=== PATIENT | female | born 1940 | race Caucasian/White ===

== ENCOUNTER 2025-01-10 16:11 | Inpatient (IN) | payer MEDICARE, OTHER ==
[~2025-01-10] VITALS: Ht 167.6 cm; Wt 68.0 kg
[2025-01-10 16:59] LABS: MEAN PLATELET VOLUME 8.3 FL (7.4-10.4); RED CELL DISTRIBUTION WIDTH 15.6 % (11.5-14.5)
--- NOTE | 2025-01-10 17:02 | RADIOLOGY REPORT ---
EXAM: DI CHEST,SINGLE VIEW HISTORY: CP TECHNIQUE: 1 view of the chest COMPARISON: None FINDINGS/IMPRESSION: LUNGS: Peripheral interstitial edema. MEDIASTINUM: Normal cardiac size BONES: No acute osseous abnormality. thoracolumbar fusion. Right-sided Calcific tendonitis of the shoulder OTHER: None.
[2025-01-10 17:24] LABS: CREATININE 1.02 MG/DL (0.40-0.90); PRO BRAIN NATRIURETIC PEPTIDE 1086 PG/ML (0-450); TOTAL CARBON DIOXIDE 32.0 MMOL/L (24-32); eCRCL 37 ML/MIN; eGFR 51 ML/MIN
--- NOTE | 2025-01-10 18:36 | Physician Documentation ---
History of Present Illness General Chief Complaint: Syncope Stated Complaint: TRANSFER Time Seen by MD: 18:16 Mode of Arrival: EMS History of Present Illness Initial Comments This is an 84-year-old female transferred to us from [facility] [place] for evaluation of elevated troponin. The patient is an exceedingly poor historian. The patient evidently presented to the outside facility for evaluation of chronic posterior headaches, chronic visual disturbances in bilateral feels for which she had already seen her PCP, had seen press tool maker, had an MRI scheduled. Evidently today she had an episode of vertigo while in the kitchen. This prompted her to be evaluated. She reports that she has been experiencing intermittent chest discomfort that he describes like I need to rub it, accompanied by intermittent exertional dyspnea which is new for her for the last several weeks. No palliating or aggravating factors for the chest pain reported by the patient. At the time of my examination she is symptom free. Evidently the patient has a history of TBI several years ago secondary to the fall mi traveling a you are. No concerns for tobacco, alcohol or illicit substances use Medication Reconciliation Allergies: Coded Allergies: Penicillins (Verified Allergy, Unknown, 01/10/25) clarithromycin (Verified Allergy, Unknown, 01/10/25) Review of Systems ROS 10 point review of systems was performed and unless noted above in HPI is negative for acute process/complaint. Physical Exam Physical Exam Vital Signs: Temperature: 98.8, Source: Oral, Heart Rate: 65, Respiratory Rate: 14, BP: 126/57, Pulse Oximetry: 96, Weight: 68.000 Oxygen Flow Rate: 0 Physical Exam GENERAL: Awake, alert, oriented, GCS 15, no apparent distress, non-toxic appearing, answers questions, follows commands appropriately. Examined in bed 8., accompanied by daughter HEENT: Atraumatic, normocephalic, pupils equal, extraocular muscles intact, sclerae anicteric, mucus membranes moist, oropharynx is clear, no stridor. NECK: supple, full active range of motion, trachea midline, no thyromegaly, no lymphadenopathy, no JVD. CARDIOVASCULAR: regular rate/rhythm, no murmurs/gallops/rubs, Pulses are 2+ in all extremities and symmetric. Capillary refill less than 2 seconds. PULMONARY: Nonlabored, good air movement ,no respiratory distress, speaking in full sentences, clear to auscultation bilaterally, no wheezing, no ronchi, no rales, no accessory muscle use. GASTROINTESTINAL: Soft, non-tender, non-distended, normal active bowel sounds, no organomegaly, no pulsatile masses, no CVA tenderness. NEUROLOGIC: Lucid with normal mental status. Normal facial symmetry. Moves all extremities symmetrically and with purpose. No truncal ataxia. Speech is fluid without evidence of dysarthria or aphasia, no focal deficits appreciated. MUSCULOSKELETAL: There is full range of motion of all extremities. There is no joint pain or joint swelling or joint erythema. There is no muscle pain or tenderness or swelling. EXTREMITIES: warm, well-perfused, no cyanosis, no clubbing, no edema, no acute deformities. Skin: warm, dry, no rashes or lesions, no jaundice, no petechiae orpurpura. No ecchymosis. PSYCHIATRIC: Normal affect, normal insight, normal concentration. Focused exam: [] Progress Results/Orders Results/Orders Vital Signs 01/10/25 01/10/25 01/10/25 01/10/25 16:19 17:08 17:10 18:06 Temp 98.8 Pulse 67 67 65 Resp 17 13 16 14 B/P (MAP) 148/76 149/64 (92) 126/57 (80) Pulse Ox 99 100 96 O2 Flow Rate 0 Laboratory Tests Test 01/10/25 16:51 White Blood Count 5.0 Red Blood Count 3.88 L Hemoglobin 12.3 Hematocrit 36.8 Mean Corpuscular Volume 94.7 Mean Corpuscular Hemoglobin 31.6 H Mean Corpuscular Hemoglobin Concent 33.4 Red Cell Distribution Width 15.6 H Platelet Count 209 Mean Platelet Volume 8.3 Neutrophils (%) (Auto) 50.9 Lymphocytes (%) (Auto) 36.9 Monocytes (%) (Auto) 9.4 Eosinophils (%) (Auto) 1.6 Basophils (%) (Auto) 1.2 H Neutrophils # (Auto) 2.5 Lymphocytes # (Auto) 1.8 Monocytes # (Auto) 0.5 Eosinophils # (Auto) 0.1 Basophils # (Auto) 0.1 CBC Comment Sodium Level 143 Potassium Level 4.0 Chloride Level 107 Carbon Dioxide Level 32.0 Anion Gap 4 L Blood Urea Nitrogen 17 Creatinine 1.02 H Estimated GFR/1.73 m2 51 BUN/Creatinine Ratio 16.7 Glucose Level 93 Calcium Level 8.2 L Troponin I High Sensitivity 137 *H Pro-B-Type Natriuretic Peptide 1086 H Albumin 3.3 L Chemistry Comments Medical Decision Making Additional information obtaine: old records, family Findings Facility Status: ED Holds, E process The plan was discussed with the patient, who demonstrates clear understanding of the plan and is in agreement with the plan unless otherwise noted in the chart. All questions have been answered, all concerns were addressed unless otherwise documented. I was available throughout their ED stay for frequent reassessment and questions. Differential Diagnoses (considered and possible or likely): [Differential diagnosis considered includes chest wall pain, pleurisy, pneumonia, pulmonary embolus, GERD, esophagitis, gastritis, anxiety, stress reaction, costochondritis, acute coronary syndrome, aortic dissection, pericarditis, myocarditis, or pneumothorax. Her occipital headache and visual changes appear to be old. She has a negative CT of the outside facility and does not require any further evaluation at this time.] ??Differential Diagnoses (considered and unlikely, not requiring evaluation currently): [Aortic/great vessels dissection was considered but it is unlikely based on absence of ripping, tearing, migratory chest pain, absence of syncope or focal neurologic deficits, physical examination indicating equal and symme tric pulses.] MDM Data Please see [facility] for the following: Independent Historians and external Records Review. Historian: [Patient] Independent Historians: ?[Daughter, record review. According to records, she had unremarkable EKG, unremarkable CT, elevated troponin.] Medication Management: [Reviewed medication list] Social History and determinants: [Reviewed] Please see the body of the note for the following: Any independent interpretations of ECG, imaging studies. All vitals signs/haemodynamics, ordered tests were independently reviewed and interpreted by myself. Nursing triage complaint and vitals reviewed, additional nursing notes were reviewed as available and I agree unless otherwise noted or documented in contradiction in the chart Vital Signs: Independently reviewed Labs: Independently interpreted Imaging: Independently interpreted Old Medical Records: Independently reviewed, see [facility] for relevant summary and information Pulse Oximetry: [96%] interpreted as [normal on room air] by me [Terrazzo Helper: [Regular Rate, Regular rhythm, no ectopy, NSR] reviewed and interpreted by me] Additionally notably showing: [Hemodynamics reviewed. The patient isn't febrile, not tachycardic, no evidence of hypotension respiratory distress. CBC normal chemistry is unremarkable. Normal renal function. BNP is elevated concerning for new onset CHF. Troponin is also elevated. No significant change from prior. Chest x-ray was repeated and it shows no acute cardiopulmonary disease.] Tests considered but not ordered include: [Stress test and echo can be done on an inpatient basis] Social Determinants of Health Impact: Patient was evaluated in [facility] [place] healthcare due to below par ratio of patient to medical providers. [] Comorbid Conditions Impacting Present Evaluation and Care/Treatment: [Multiple, see list] Management Discussions with other Healthcare Providers: [Hospitalist regarding admission] Treatment and Disposition Medication Management (Given or considered): []. See EMR for details Consideration for Hospitalization/Escalation/Deescalation of Care: Admission for observation has been considered, it appears to be necessary for further evaluation of her NSTEMI. ?ED Course:?[No clinical deterioration] ?Shared decision making:?[] Code status:?FULL Please see the full Electronic Medical Record for full details of nursing documentation, medications list, other records of complete past medical history and conditions, vital signs, laboratory studies, and any radiologic study interpretations by radiologists. Portions of this note were completed using [employer] dictation software and as a result there may exist minor errors in spelling. I have reviewed elements of past family and social history and agree as included in note. Differential Diagnosis See body of main note for differential diagnosis Departure Disposition: ADMITTED INPATIENT Admitted to Inpatient Unit: to hospitalist Impression: Primary Impression: NSTEMI (non-ST elevated myocardial infarction) Additional Impressions: Near syncope Chronic headache Visual disturbances Referrals: NO PRIMARY CARE PROVIDER (PCP) Signature Scribe Signature: No scribe Attestation: The note accurately reflects work and decisions made by me.Ramez Townsend, 01/10/25 18:36 RAMEZ TOWNSEND DO Jan 10, 2025 18:36
[2025-01-10] MEDS ORDERED: morphine 4 MG/ML inj SYRINge IV PRN ×2 (20:30)
[2025-01-10] MEDS ORDERED: potassium Cl 40MEQ/1/2NS 520ml 520 ML IV PRN (20:30)
[2025-01-10] MEDS ORDERED: docusate sod 100mg capsule PO PRN (20:30)
[2025-01-10] MEDS ORDERED: ondansetron/PF 4mg/2ml inj IV PRN (20:30)
[2025-01-10] MEDS ORDERED: magnesium Cl slow-release 64mg tablet PO PRN (20:30)
[2025-01-10] MEDS ORDERED: mag hydrox/Alum hydrox/simeth 30ml oral suspension PO PRN (20:30)
[2025-01-10] MEDS ORDERED: magnesium hydroxide 30ml (MOM) UD suspension PO PRN (20:30)
[2025-01-10] MEDS ORDERED: potassium Cl 20 mEq SR tablet PO PRN ×2 (20:30)
[2025-01-10] MEDS ORDERED: magnesium sulf-water 2g/50mL 50 ML IV PRN (20:30)
[2025-01-10] MEDS ORDERED: magnesium sulf-water 4G/100mL 100 ML IV PRN (20:30)
[2025-01-10] MEDS ORDERED: aminophylline 250mg/10ml inj. IV PRN (20:40)
[2025-01-10] MEDS ORDERED: metoprolol tartrate 1mg/ml inj IV PRN (20:40)
[2025-01-10] MEDS: PERFLUTREN PROTEIN-A MICROSPHR (Optison) 0.22 MG/ML 3ML VIAL IV ONE (20:52)
--- NOTE | 2025-01-10 20:52 | HISTORY AND PHYSICAL-Residence ---
History & Physical Providers to CC Resident Creating Document: JOSE LUIS STEINBERG, KRISHAN ~ History of Present Illness Reason for Admit\Complaint: Atypical Angina w/ near syncope History of Present Illness An 84 years old lady with a past medical history of vertigo, bradycardia, peripheral neuropathy, Raynaud's syndrome, s/p hemorrhoidectomy, s/p titanium for lumbar vertebral fracture from [facility], nonspecific cardiac arrhythmia on metoprolol, who was transferred from [facility] for concerns of non-STEMI. Patient was seen in ER in the presence of her and daughter who is RN. Most of the information were obtained from patient and her daughter. Patient stated that she had near syncopal episode this morning while she was doing dishes in the sink. She noticed she was about to pass out with the prodromal feelings of the whole-body flushing, hotness, palpitations, dizziness, lightheadedness, tingling all over her body, and nausea feeling although she did not pass out. She found that her saturation got better once she sat down at the moment. She denied having fever with chills and rigors, chest pain/pressure, radiating chest pain, lower urinary tract symptoms and abnormal bowel movement including diarrhea, hemoptysis, orthopnea PND and bilateral ankle swelling before she had symptoms today. Over a couple of 2 months ago, patient started noticing dizziness lightheadedness, with new visual changes like wavy, foggy vision which she attributed to her usual vertigo along with bilateral occipital headaches without having any FND for which she was prescribed MRI head and neck scan by her PCP, however, she did not happen to have one yet. She had fallen down to ground six years ago because of loss of balance and got lower lumbar vertebral fracture which was replaced with titanium. Her box worker is Dr. Cortez and she is seeing box worker for nonspecific arrhythmia for which she was put on metoprolol. Upon her recent visual changes, bilateral occipital headaches, bradycardia, and dizziness, Dr. Cortez recommended her to stop taking metoprolol since last two weeks ago. She was not noticing any chest pain today but she has been having off and on chest discomfort/heaviness over months, for which she had normal stress test at Dr. Cortez office a year ago and Dr. Cortez is planning to stress her again on coming January 22. She denied any recent malignancy history and treatment, long travel distance history, history of DVT and pulmonary embolism, recent viral illness, and any sick contact. In [facility], patient found to have mildly elevated troponin 0.19, clear urine analysis, CT head scan without IV contrast showing no acute intracranial abnormality were done. Patient was given p.o. aspirin 324 mg and subcutaneous Lovenox 7 mg with the concerns of non-STEMI. Allergies: Coded Allergies: Penicillins (Verified Allergy, Unknown, 01/10/25) clarithromycin (Verified Allergy, Unknown, 01/10/25) Past Medical History Past Medical History vertigo, bradycardia, peripheral neuropathy, Raynaud's syndrome, nonspecific cardiac arrhythmia on metoprolol Past Surgical History Surgical History Comment s/p hemorrhoidectomy, s/p titanium for lumbar vertebral fracture from [facility] Past Social History Social History Comment She is currently living with her in the same house. Her RN daughter is also POA after her . Patient quit smoking 25 years ago, denies using illicit drugs. She is still drinking small amount of wine almost every night. She is fully ambulatory. ROS All Other Systems: Reviewed and Negative ROS Constitutional: No fever, chills, weakness, weight gain or loss Eyes: No pain, erythema, discharge, blurring of vision ENT: No sore throat, epistaxis, tinnitus Cardiovascular: No chest pain, chest pressure, syncope, lower extremity edema, paroxysmal nocturnal dyspnea Respiratory: No shortness of breath, cough, hemoptysis Gastrointestinal: Normal appetite. No nausea, vomiting, diarrhea, constipation, hematemesis, abdominal pain, bloating, melena or fresh blood Genitourinary: No frequency, urgency, nocturia, hematuria or dysuria Musculoskeletal: No arthralgias or myalgias Integumentary: No change in skin, hair, nails. No swelling, bruising, abrasions Neurologic: No headache, neck pain, numbness or tingling of the extremities, weakness Psychiatric: No delusions, depression, loss of interest in normal activity or change in sleep pattern, hallucinations, suicidal ideations Endocrine: No fatigue, weakness, polydipsia, polyuria, change in appetite, heat or cold intolerance, sweating, dry skin Hematological: No bleeding, petechiae, bruising Allergies: No asthma or urticaria Exam Vitals: Vital Signs Date Time Temp Pulse Resp B/P (MAP) Pulse Ox O2 Delivery O2 Flow Rate FiO2 01/10/25 20:16 01/10/25 20:15 98.8 67 16 98 0 General: General: Bilateral possible sensory deafness, Well alert, well oriented, not confused, not agitated, not in acute distress, well cooperated during the physical. HEENT: HEENT: Conjunctive are pink, sclerae clear, no icterus, pupil is equal in both sides, reactive to light, no ear discharge, no pharyngeal erythema or an edema, mouth and lips are slightly dry. Neck: Neck: Supple, no JVD, no lymphadenopathy and thyromegaly. Chest: Lungs:Equal air entry on both lungs, no additional sounds Cardiovascular: Heart: S1-S2 regular sinus rhythm and, regular rate, no gallops, no rubs, no murmurs Abdomen: Abdomen: No visible peristalsis, Bowel sounds present on auscultation, soft, nontender, no guarding, no rigidity Extremities: Extremities: No obvious deformities, no pitting edema bilaterally, capillary refill intact, able to wiggle toes both sides, peripheral pulsations are intact on both sides Central Nervous System: RN MEDICATION: No focal neurological deficits, no motor and sensory weakness in all 4 extremities, could move all 4 extremities Musculoskeletal: Musculoskeletal: No joint swelling, deformities, inflammations, and no scoliosis and back tenderness Skin: Skin: No active skin lesions and rashes Diagnostic Data Last Recorded Lab Results: 01/10/25 1651 01/10/25 1651 Advance Care Planning Advanced Care plannin - 30 Minutes Additional Plan An 84 years old lady with a past medical history of vertigo, bradycardia, peripheral neuropathy, Raynaud's syndrome, s/p hemorrhoidectomy, s/p titanium for lumbar vertebral fracture from [facility], nonspecific cardiac arrhythmia on metoprolol, who was transferred from [facility] for concerns of non-STEMI. # Near Syncope episode # Atypical Angina # possible type 2 TX -Given Hx of transferred from [facility] found to have mildly elevated troponin for which she was given p.o. aspirin loading dose and SQ Lovenox 70 mg, patient was decided to be admitted to PCU for further investigation including ruling out ACS and possible syncope workup, in the presence of underlying cardiology issue. -Pt had near syncope episode, which she will be ruled out for autonomic dysfunction/orthostatic hypotension vs CVA in the presence of recent visual changes with bilateral occipital headaches vs underlying bradyarrhythmia. -In ER, EKG showed sinus rhythm and vitals were stable with slightly elevated BP 150/80 mm Hg. -upon slightly elevated initial troponin at [facility] followed by slightly elevated serial troponin here showing 137-125 which could be type 2 TX possibly from her possible orthostatic hypotension. Plan: -NPO after midnight, stress test in the morning -possible Cardiology/Dr. Cortez consultation/inform -orthostatic hypotension tests q.12h, treat accordingly -pending carotid bilateral ultrasound, to investigate if [place] titanium placement is compatible to MRI scan in the morning time, to consider MRI head and neck inpatient. -pending 2D echocardiogram with a bubble study -continuous telemetry monitoring -hold metoprolol tartrate unless Dr. Cortez recommended to resume it -pending medical reconciliation -to assess vertigo which could be central/peripheral and should be ruled out -to use sublingual nitroglycerin as needed for chest pain # slightly elevated creatinine level # apparent hypocalcemia with selective serum hypoalbuminemia -no baseline to compare with EGFR 51 -monitor rate of EGFR declining -calculated calcium show 8.8 which is within normal -pending urine lytes CODE STATUS: Full code, spent 5-10 minutes in the presence of family members/POA by explained in details about CPR for full code. DVT prophylaxis: SQ heparin 5000 units b.i.d. Analgesia/sedation: IV morphine as needed Lines/tubes: PIV GI prophylaxis: Protonix Nutrition: NPO after midnight for stress test tomorrow, followed by Heart healthy Prognosis: Guarded Disposition: Continue medical management including continuous telemetry monitoring, pending labs and imaging, orthostatic hypotension, inform Cardiology Dr. Cortez, PT eval and DC plan. Resident attestation: Patient was seen, examined and discussed with attending MD, Dr. Pj STEINBERG MD Internal Medicine Resident, PGY3 [facility] Patient was evaluated using HIPPA complaint AV device Agree with plan as discussed with the resident Follow repeat EKG Froilan Oliva MD Date of Service: Jan 10, 2025 Billing Provider: FROILAN OLIVA MD, TIN, KRISHAN Jan 10, 2025 20:52 FROILAN OLIVA MD Jan 10, 2025 21:53
[2025-01-10 21:00] LABS: APTT 36 SECONDS (22-32); INR 1.1 INR
[2025-01-10] MEDS ORDERED: ESCI5TAB PO (21:55)
[2025-01-10 22:03] LABS: LEUKOCYTE ESTERASE ,URINE NEGATIVE (Neg); NITRITES, URINE NEGATIVE (Neg); OCCULT BLOOD,URINE NEGATIVE (Neg)
[2025-01-10 22:05] LABS: UA COLLECTION TYPE NON-SPECIFIED
[2025-01-10 22:30] VITALS: O2SAT 98
[2025-01-11] VITALS (15 sets, daily range): BP systolic 95–173; BP diastolic 45–78; PULSE 54–85; RESP 10–22; TEMP 97–98.5; O2SAT 93–100
[2025-01-11 04:14] LABS: CREATININE,URINE RANDOM 50.0 MG/DL; OSMOLALITY UA 533.0 MOSM/K (50-1400)
[2025-01-11 06:22] LABS: MEAN PLATELET VOLUME 9.2 FL (7.4-10.4); RED CELL DISTRIBUTION WIDTH 15.3 % (11.5-14.5)
[2025-01-11 07:01] LABS: OSMOLALITY 292 MOSM/K (280-300)
[2025-01-11 07:02] LABS: CHOL/HDL RATIO 1.7 (0.00-4.99); CREATININE 1.08 MG/DL (0.40-0.90); LDL CHOLESTEROL 34 MG/DL (50-100); TOTAL CARBON DIOXIDE 30.7 MMOL/L (24-32); eCRCL 35 ML/MIN; eGFR 48 ML/MIN
[2025-01-11] MEDS: pantoprazole 40mg Tablet.DR PO SCH (07:16)
[2025-01-11] MEDS: K and/or MAG REPLACEMENT MC SCH (07:17)
[2025-01-11] MEDS: heparin, porcine 5000 units/ml vial SQ SCH (07:17)
--- NOTE | 2025-01-11 09:30 | ELECTROCARDIOGRAPH REPORT ---
[facility] Test Date: 2025-01-10 Test Time: 16:22:41 Pat Name: MCKENNA TOLENTINO Department: EMERGENCY ROOM Room: [place] [address] A Gender: F [place]: [place] : 1940 Requested By: RAFFI RENDON Order Number: [id number] Reading MD: Dr. HEMANT Cortez Measurements Intervals [place] Rate: 72 P: 52 WV: 171 QRS: -26 QRSD: 102 T: 80 QT: 403 QTc: 442 Interpretive Statements Sinus rhythm Borderline left axis deviation Probable anteroseptal infarct, old Baseline wander in lead(s) V6 Electronically Signed On 01-12-2025 9:36:[address] HEMANT Cortez Please click the below link to view image of tracing.
[2025-01-11] MEDS: regadenoson 0.4mg/5ml syringe IV PRN (10:03)
--- NOTE | 2025-01-11 11:57 | RADIOLOGY REPORT ---
CLINICAL INFORMATION: Unstable angina. Near syncope. TECHNIQUE: 8.4 mCi of technetium 99m sestamibi was infused at rest. Rest SPECT imaging was obtained. Routine protocol for Lexiscan stress study was performed with 0.4 mg of Lexiscan. 34 mCi of technetium 99m sestamibi was infused. Stress SPECT imaging was obtained. COMPARISON: None FINDINGS: Resting heart rate of 55 BPM increased to maximum rate of 83 BPM. Resting blood pressure of 147/55 increased to 173/78. The patient experienced chest discomfort during the stress portion of the exam. Nonspecific ST-T wave changes. There is no evidence of stress induced ischemia or stress dilatation of the left ventricle. TID ratio is 1.17. Wall motion imaging appears normal. Calculated left ventricular ejection fraction is 78%. IMPRESSION: 1. No evidence of stress-induced ischemia. 2. Left ventricular ejection fraction is 78%.
--- NOTE | 2025-01-11 14:03 | CARDIOLOGY REPORT ---
APPROVED REPORT EXAM: Comprehensive 2D, Doppler, and color-flow Echocardiogram. Patient Location: 3017 A Heart Rate: 60's bpm Rhythm: SINUS Indications ANGINA Shoe Fitter: MD Ruben Previous echo: NONE AVAILABLE (AFTER HOURS) 2D Dimensions RVDd 3.2 cm IVSd 0.9 (0.7-1.1cm) LVDd 4.3 cm PWd 0.9 (0.7-1.1cm) IVSs 1.1 (0.8-1.2cm) LVDs 3.1 (2.5-4.0cm) PWs 1.0 (0.8-1.2cm) LVOT Diameter 2.01 (1.8-2.4cm) LVEF(%) 56.5 (>50%) FS (%) 29.3 % SV 47.7 ml CO 5.4 L/min M-Mode Dimensions Left Atrium(MM) 4.36 (2.5-4.0cm) Aortic Root 3.02 (2.2-3.7cm) Aortic Valve AoV Peak Azael. 176.2 cm/s AoV VTI 40.2 cm AO Peak GR. 12.4 mmHg AO Mean GR. 6 mmHg LVOT VTI 31.08 cm LVOT Peak Azael. 143.8 cm/s RUPINDER(VTI)/BSA 2.45 cm2/m2 RUPINDER (VTI) 2.45 cm2 AV DI 0.77 % Mitral Valve MV Peak Gr. 7 mmHg MV PHT 64 ms MVA (PHT) 3.44 cm2 MV VMax 131.6 cm/s Tricuspid Valve TR P. Velocity 287 cm/s RAP ESTIMATE 10 mmHg TR Peak Gr. 33 mmHg RVSP 43 mmHg LEFT VENTRICLE Normal LV size and wall thickness. Overall systolic function is normal. Overall LVEF is 60-65%. RIGHT VENTRICLE RV is normal size and function. Estimated PA systolic pressure of 43 mm of mercury ATRIA Left atrium is mildly dilated. AORTIC VALVE Trileaflet AV appears mildly sclerotic without stenosis. No insufficiency by color and spectral flow Doppler. MITRAL VALVE Mild MV annular calcification without stenosis. Mild regurgitation by color and spectral flow Doppler. TRICUSPID VALVE TV appears structurally normal with moderate regurgitation by color and spectral flow Doppler. PULMONIC VALVE Pulmonic valve is grossly normal in structure. GREAT VESSELS The aortic root is normal in size. PERICARDIUM Normal pericardium. No effusion. Other Information Study Quality: Adequate Conclusion Overall LVEF is 60-65%. Normal LV size and wall thickness. Overall systolic function is normal. RV is normal size and function. Estimated PA systolic pressure of 43 mm of mercury Trileaflet AV appears mildly sclerotic without stenosis. No insufficiency by color and spectral flow Doppler. Mild MV annular calcification without stenosis. Mild regurgitation by color and spectral flow Doppler. TV appears structurally normal with moderate regurgitation by color and spectral flow Doppler. Normal pericardium. No effusion.
--- NOTE | 2025-01-11 18:39 | VASCULAR REPORT ---
CLINICAL HISTORY: Dizziness, vertigo. TECHNIQUE: Duplex carotid Doppler ultrasound was performed. Grayscale, color- flow, and spectral waveform analysis was performed. COMPARISON: None FINDINGS: There is mild calcified plaque seen on aguila scale imaging in the carotid bifurcations and proximal ICAs bilaterally. There is no significant elevation of the peak systolic velocity. There is no significant spectral broadening. Color doppler examination demonstrates no evidence for significant turbulent flow. Findings correspond to the less than 50% stenosis category. Antegrade flow is noted in both vertebral arteries. Subclavian arteries demonstrate normal multiphasic flow bilaterally. EXAMINATION DATA: RIGHT PSV (cm/s) EDV (cm/s) ICA 64 16 CCA 65 ECA 83 ICA/CCA Ratio: 0.98 Vertebral Flow: antegrade LEFT PSV (cm/s) EDV (cm/s) ICA 80 22 CCA 61 ECA 61 ICA/CCA Ratio: 1.31 Vertebral Flow: antegrade IMPRESSION: 1. Findings are consistent with the less than 50% carotid stenosis category bilaterally. 2. Antegrade flow in the vertebral arteries.
--- NOTE | 2025-01-11 19:19 | PROGRESS NOTE ---
Daily Progress Note Providers to CC ~ Antibiotic Timeout Antibiotic Ordered?: No Subjective Patient was seen in presence of her and 2 grandkids today . All labs, diagnostic workup discussed with patient and family members in detail in visit All questions and queries answered to the best of my professional medical knowledge. Patient wants to get MRI of her head because off and on she feels that her head hurts and it is not getting better., per ER record" she was recommended MRI head and neck scan by her PCP, however, she did not happen to have one yet. She had fallen down to ground six years ago because of loss of balance and got lower lumbar vertebral fracture which was replaced with titanium. patient follows with community outreach specialist Dr. Cortez in outpatient setting" Objective Vital Signs Date Time Temp Pulse Resp B/P (MAP) Pulse Ox O2 Delivery O2 Flow Rate FiO2 01/11/25 15:00 97.6 67 10 118/52 (74) 99 Room Air 01/11/25 08:00 0.0 01/10/25 22:30 21 Result Diagram: 01/11/25 0546 01/11/25 0546 General-patient not in any acute distress, alert awake oriented, chronically ill-appearing, age-appropriate, looks comfortable HEENT-atraumatic normocephalic, neck supple without elevated JVD, no thyromegaly or carotid bruit. No lymphadenopathy bilaterally. Eyes-no icterus or pallor seen in eyes Chest-clear to auscultation bilaterally, breathing nonlabored no tachypnea, no wheezing, no crepitation, no crackles. Heart-S1-S2 normal, regular heart rate no murmur Abdomen bowel sounds positive on auscultation, soft nondistended nontender no guarding, no rigidity Skin no active skin rash Neurology-grossly intact, nonfocal alert awake oriented Extremity- no pedal edema able to move all 4 extremities Psychiatry - patient is not confused or agitated cooperated during physical examination Coagulation Studies Laboratory Tests Test 01/10/25 16:52 Prothrombin Time 10.9 SECONDS (9.0-12.0) INR International Normalized Ratio 1.1 INR Activated Partial Thromboplast Time 36 SECONDS (22-32) H Coagulation Comments Problem\\Assessment\\Plan An 84 years old lady with a past medical history of vertigo, bradycardia, peripheral neuropathy, Raynaud's syndrome, s/p hemorrhoidectomy, s/p titanium for lumbar vertebral fracture from [facility], nonspecific cardiac arrhythmia on metoprolol, who was transferred from [facility] for concerns of non-STEMI. # Near Syncope episode # Atypical Angina # possible type 2 NC -Pt had near syncope episode -In ER, EKG showed sinus rhythm and vitals were stable -upon slightly elevated initial troponin at [facility] followed by slightly elevated serial troponin here showing 118-137-125 Plan: - stress test done today which was unremarkable for any acute cadriac ischemia -we will inform community outreach specialist Dr. Cortez in AM -orthostatic hypotension tests q.12h, treat accordingly -carotid bilateral ultrasound showed less than 50% carotid stenosis category bilaterally.Antegrade flow in the vertebral arteries. -MRI head ordered but not sure that it is compatible with Lumber titanium material -echocardiogram done, ejection fraction 60-65% overall systolic function is normal normal left ventricular size and wall thickness. PA pressure 43. Right ventricle is normal size and function, rest of the echocardiogram findings unremarkable -will continue telemetry monitoring -hold metoprolol tartrate unless Dr. Cortez recommended to resume it # slightly elevated creatinine level- improved # apparent hypocalcemia with selective serum hypoalbuminemia Patient of the monitor renal function CODE STATUS: Full code, DVT prophylaxis: SQ heparin 5000 units b.i.d. Analgesia/sedation: IV morphine as needed Lines/tubes: PIV GI prophylaxis: Protonix Nutrition: Heart healthy diet Patient's current condition is guarded we will continue to follow patient in AM Date of Service: Jan 11, 2025 Billing Provider: MONIQUE MONROY MD Common Visit Codes: [id number] INP/OBS CARE(HIGH) MONIQUE MONROY MD Jan 11, 2025 19:19
[2025-01-12 02:00] VITALS: BP 132/57; PULSE 72; RESP 16; TEMP 97.4; O2SAT 98
[2025-01-12 07:00] VITALS: BP 114/58; PULSE 52; RESP 16; TEMP 98.1; O2SAT 99
[2025-01-12 07:08] LABS: MEAN PLATELET VOLUME 9.4 FL (7.4-10.4); RED CELL DISTRIBUTION WIDTH 15.3 % (11.5-14.5)
[2025-01-12 07:43] LABS: CREATININE 0.99 MG/DL (0.40-0.90); TOTAL CARBON DIOXIDE 30.0 MMOL/L (24-32); eCRCL 38 ML/MIN; eGFR 53 ML/MIN
[2025-01-12] MEDS: sotalol HCl 40mg (1/2 tablet) PO SCH (09:15)
[2025-01-12 09:33] LABS: MEAN PLATELET VOLUME 9.1 FL (7.4-10.4); RED CELL DISTRIBUTION WIDTH 15.5 % (11.5-14.5)
--- NOTE | 2025-01-12 09:47 | CONSULTATION REPORT - RESIDENT ---
Consult Providers to CC Resident Creating Document: CRYSTAL PEREZ RES History of Present Illness Reason for Admit\Complaint: Dizziness, posterior headache, palpitations History of Present Illness An 84 years old lady with a past medical history of vertigo, bradycardia, peripheral neuropathy, Raynaud's syndrome, s/p hemorrhoidectomy, s/p titanium for lumbar vertebral fracture from [facility], nonspecific cardiac arrhythmia on metoprolol, who was transferred from [facility] for concerns of non-STEMI. She reported that she had near syncopal episode on January 10 while she was doing dishes in the sink. She noticed she was about to pass out with the prodromal symptoms of flushing, hotness, palpitations, dizziness, lightheadedness, tingling all over her body, and nausea feeling although she did not pass out. She reported dizziness, posterior headache, palpitations during the time of admission and it seems to be the 1st episode and she had enormous dizziness while she came to ER from [place]. Troponins were mildly elevated at [facility] and then referred here for further evaluation after giving aspirin 325, subcu Lovenox Allergies: Coded Allergies: Penicillins (Verified Allergy, Unknown, 01/10/25) clarithromycin (Verified Allergy, Unknown, 01/10/25) Home Medications Home Medications Active Reported Lexapro* (Escitalopram Oxalate) 5 Mg Tablet 1 Tab PO DAILY 30 Days Past Medical History Past Medical History vertigo, bradycardia, peripheral neuropathy, Raynaud's syndrome, nonspecific cardiac arrhythmia on metoprolol Past Surgical History Surgical History Comment s/p hemorrhoidectomy, s/p titanium for lumbar vertebral fracture from [facility] Past Social History Social History Comment She is currently living with her in the same house. Her RN daughter is also POA after her . Patient quit smoking 25 years ago, denies using illicit drugs. She is still drinking small amount of wine almost every night. She is fully ambulatory. ROS ROS All are negative except positive pertinent as in HPI Exam Vitals: Vital Signs Date Time Temp Pulse Resp B/P (MAP) Pulse Ox O2 Delivery O2 Flow Rate FiO2 01/12/25 07:00 98.1 52 16 114/58 (76) 99 Room Air 01/11/25 08:00 0.0 01/10/25 22:30 21 General: General: Bilateral possible sensory deafness, Well alert, well oriented, not confused, not agitated, not in acute distress, well cooperated during the physical. HEENT: HEENT: Conjunctive are pink, sclerae clear, no icterus, pupil is equal in both sides, reactive to light, no ear discharge, no pharyngeal erythema or an edema, mouth and lips are slightly dry. Neck: Neck: Supple, no JVD, no lymphadenopathy and thyromegaly. Chest: Lungs:Equal air entry on both lungs, no additional sounds Cardiovascular: Heart: S1-S2 regular sinus rhythm and, regular rate, no gallops, no rubs, no murmurs Abdomen: Abdomen: No visible peristalsis, Bowel sounds present on auscultation, soft, nontender, no guarding, no rigidity Extremities: Extremities: No obvious deformities, no pitting edema bilaterally, capillary refill intact, able to wiggle toes both sides, peripheral pulsations are intact on both sides Central Nervous System: CHEMICAL PATHOLOGIST: No focal neurological deficits, no motor and sensory weakness in all 4 extremities, could move all 4 extremities Musculoskeletal: Musculoskeletal: No joint swelling, deformities, inflammations, and no scoliosis and back tenderness Skin: Skin: No active skin lesions and rashes Diagnostic Data Last Recorded Lab Results: 01/12/25 0904 01/12/25 0625 Diagnostic Data: Laboratory Tests Test 01/10/25 16:52 Prothrombin Time 10.9 SECONDS (9.0-12.0) INR International Normalized Ratio 1.1 INR Activated Partial Thromboplast Time 36 SECONDS (22-32) H Coagulation Comments Additional Plan 84-year-old female with Supraventricular tachycardia Telemetry showed supraventricular tachycardia of 140s Recommended to start sotalol 40 mg p.o. b.i.d. Troponinemia Elevated troponin levels could be secondary to stress-induced Mild elevation of troponins with negative L[place] stress test and the stress test was negative even in her previous office visit Follow up in outpatient Neurology consultation Follow up with PCP at [place] Elevated creatinine Pseudo hypocalcemia Hypoalbuminemia Management per hospitalist team Date of Service: Jan 12, 2025 Billing Provider: ULYSSES WATTS MD, VENKATESH, RES Jan 12, 2025 09:47
[2025-01-12 10:00] VITALS: BP 100/43; PULSE 68; RESP 21; TEMP 98.5; O2SAT 99
[2025-01-12 11:00] VITALS: BP_SYST 111; BP_SYST 112; BP_DIAS 44; BP_DIAS 52; BP_DIAS 55; PULSE 67; PULSE 68; PULSE 70
[2025-01-12] MEDS: sotalol HCl 40mg (1/2 tablet) PO ONE (12:41)
[2025-01-12 13:00] VITALS: O2SAT 99
[2025-01-12 15:00] VITALS: BP 119/48; PULSE 55; RESP 15; TEMP 97.6; O2SAT 99
--- NOTE | 2025-01-12 15:15 | RADIOLOGY REPORT ---
PROCEDURE: MR MRI HEAD INDICATION: dizziness/ near syncope EXAM DATE: 01/12/2025 02:03 PM COMPARISON: None TECHNIQUE: MRI of the brain without intravenous contrast. FINDINGS: At least 4 tiny foci of diffusion restriction within the right lentiform nucleus, external capsule, and caudate mild. More equivocal tiny focus of diffusion restriction within the left cancino radiata. There is no evidence of acute intracranial hemorrhage, extra-axial collection, mass effect, midline shift, herniation or hydrocephalus. The ventricles, sulci and cisterns appear age appropriate. Moderate generalized cerebral volume loss with confluence areas of increased T2/FLAIR signal in the subcortical, deep, and periventricular white matter of both cerebral hemispheres compatible with severe chronic small vessel ischemia. There are no signal abnormalities on the susceptibility weighted sequences. The major vascular flow voids are present. The visualized paranasal sinuses and mastoid air cells are clear. The surrounding soft tissues and osseous structures are unremarkable. IMPRESSION: Few tiny lacunar infarcts within the right basal ganglia. More equivocal tiny lacunar infarct within the left cancino radiata, possibly artifact.
[2025-01-12] MEDS ORDERED: SOTA80TA73 PO (16:08)
[2025-01-12] MEDS ORDERED: ASPI-1265 PO (16:12)
[2025-01-12] MEDS ORDERED: LOVA40TA2 PO (16:12)
[2025-01-12] MEDS ORDERED: CLOP-32 PO (16:12)
--- NOTE | 2025-01-12 19:19 | DISCHARGE SUMMARY ---
Discharge Summary Providers to ~ Discharge Summary Admission Diagnosis: Atypical Angina Hospital Course DATE OF ADMISSION: 01/10/25 DATE OF DISCHARGE:01/12/25 CBC testing done on January 12, 2025 WBC 3.9 hemoglobin 12.9 hematocrit 39.2 platelet count 233. Serum chemistry done on January 12, 2025 sodium 145 potassium 3.6 creatinine 0.99 GFR 53 normal liver enzymes except mildly elevated AST 38. Hemoglobin A1c 5.0, lipid panel showing triglyceride 61 total cholesterol 137 LDL 34 HDL 81. TSH 1.56 MRI HEADIMPRESSION: Few tiny lacunar infarcts within the right basal ganglia. More equivocal tiny lacunar infarct within the left cancino radiata, possibly artifact. ECHOCARDIOGRAMConclusion Overall LVEF is 60-65%. Normal LV size and wall thickness. Overall systolic function is normal. RV is normal size and function. Estimated PA systolic pressure of 43 mm of mercury Trileaflet AV appears mildly sclerotic without stenosis. No insufficiency by color and spectral flow Doppler. Mild MV annular calcification without stenosis. Mild regurgitation by color and spectral flow Doppler. TV appears structurally normal with moderate regurgitation by color and spectral flow Doppler. Normal pericardium. No effusion. NM ANTONETTE SCANIMPRESSION: 1. No evidence of stress-induced ischemia. 2. Left ventricular ejection fraction is 78%. : VL CAROTIDIMPRESSION: 1. Findings are consistent with the less than 50% carotid stenosis category bilaterally. 2. Antegrade flow in the vertebral arteries. CHEST,SINGLE VIEWFINDINGS/IMPRESSION: LUNGS: Peripheral interstitial edema. MEDIASTINUM: Normal cardiac size BONES: No acute osseous abnormality. thoracolumbar fusion. Right-sided Calcific tendonitis of the shoulder OTHER: None. Discharge Diagnosis\Comment: Few tiny lacunar infarcts within the right basal ganglia, Troponinemia, Supraventricular tachycardia Operations\Procedures: None Consultants: None Complications: None Condition on DC: Stable New Medications: Aspirin (Aspirin) 81 Mg Tab.chew 1 TAB PO DAILY for 30 Days, #30 TAB.CHEW Clopidogrel Bisulfate (Plavix) 75 Mg Tablet 1 TAB PO DAILY for 30 Days, #30 TAB 0 Refills Lovastatin (Lovastatin) 40 Mg Tablet 1 TAB PO DAILY for 30 Days, #30 TAB 0 Refills with food Sotalol Hcl* (Betapace*) 80 Mg Tablet 40 MG PO BID for 30 Days, #60 TAB Continued Medications: Escitalopram Oxalate* (Lexapro*) 5 Mg Tablet 1 TAB PO DAILY for 30 Days, #30 TAB Discharge Summary: An 84 years old lady with a past medical history of vertigo, bradycardia, peripheral neuropathy, Raynaud's syndrome, s/p hemorrhoidectomy, s/p titanium for lumbar vertebral fracture from [facility], nonspecific cardiac arrhythmia on metoprolol, who was transferred from [facility] for concerns of non-STEMI. # Near Syncope episode, likely benign positional vertigo/supraventricular tachycardia # Atypical Angina # possible type 2 OR -Pt had near syncope episode -In ER, EKG showed sinus rhythm and vitals were stable -upon slightly elevated initial troponin at [facility] followed by slightly elevated serial troponin here showing 118-137-125 Plan: - stress test done today which was unremarkable for any acute cadriac ischemia -orthostatic hypotension tests q.12h, treat accordingly -carotid bilateral ultrasound showed less than 50% carotid stenosis category bilaterally.Antegrade flow in the vertebral arteries. -MRI head done today and results mentioned above -echocardiogram done, ejection fraction 60-65% overall systolic function is normal normal left ventricular size and wall thickness. PA pressure 43. Right ventricle is normal size and function, rest of the echocardiogram findings unremarkable -will continue telemetry monitoring -held metoprolol tartrate Dr. Cortez evaluated the patient today and recommended sotalol which is ordered in discharge meds. # slightly elevated creatinine level- improved # apparent hypocalcemia with selective serum hypoalbuminemia Patient of the monitor renal function CODE STATUS: Full code, DVT prophylaxis: SQ heparin 5000 units b.i.d. Analgesia/sedation: IV morphine as needed Lines/tubes: PIV GI prophylaxis: Protonix Nutrition: Heart healthy diet Patient is feeling better she has been afebrile and getting discharged home in stable condition. Patient is seen and examined on the day of discharge. All labs, diagnostic workup and discharge plan discussed with patient and in detail before her discharge. All questions and queries answered to the best of my professional medical knowledge. I heard patient's concerns and address appropriately. Patient was cleared by Physical therapy team for home discharge. manager of project management involved in patient's discharge plan. Discharge instructions provided to the patientPLEASE FOLLOW UP PCP , ENAMELER IN 1 WEEK . She needs referral to Neurology specialist in outpatient setting after hospital discharge. Activity as tolerated. Please provide fall precautions document. Please read the side effects of all your medication and discussed with PCP and quality control specialist after hospital discharge. Likely will need Holter monitoring with rac specialist in outpatient setting. Detailed counseling done regarding dizziness and multifactorial nature of dizziness explained to them. It was also strongly recommended to go to [facility] for physical therapy and treatment for dizziness. General-patient not in any acute distress, alert awake oriented, chronically ill-appearing, age-appropriate, looks comfortable HEENT-atraumatic normocephalic, neck supple without elevated JVD, no thyromegaly or carotid bruit. No lymphadenopathy bilaterally. Eyes-no icterus or pallor seen in eyes Chest-clear to auscultation bilaterally, breathing nonlabored no tachypnea, no wheezing, no crepitation, no crackles. Heart-S1-S2 normal, regular heart rate no murmur Abdomen bowel sounds positive on auscultation, soft nondistended nontender no guarding, no rigidity Skin no active skin rash Neurology-grossly intact, nonfocal alert awake oriented Extremity- no pedal edema able to move all 4 extremities, patient can ambulate. Psychiatry - patient is not confused or agitated cooperated during physical examination *Problems/Diagnosis: (1) Near syncope Status: Acute Total Time Spent on D/C: > 30 Minutes Date of Service: Jan 12, 2025 Billing Provider: MONIQUE MONROY MD Common Visit Codes: 35988-HBS/OBS DISCH DAY >30min MONIQUE MONROY MD Jan 12, 2025 19:12
[2025-01-13] MEDS ORDERED: ESCITALOPRAM 10 mg tablet 10 MG TABLET PO SCH (08:00)
== END 2025-01-12 17:16 | disposition home or self-care (01) | DRG 64 ==
LOC: ER 16:11 → UNDOADMIN 19:37 → ED HOLD 19:37 → PCU 3S 01-11 03:01
PROVIDERS: ADMIT Internal Medicine; ATTEND Internal Medicine
PROC: 4A02XM4 Measurement of Cardiac Total Activity, External Approach (ICD-10-PCS; principal; 2025-01-11)
PROC: 3E073KZ Introduction of Other Diagnostic Substance into Coronary Artery, Percutaneous Approach (ICD-10-PCS; 2025-01-11)
DX: I63.81 Other cerebral infarction due to occlusion or stenosis of small artery (principal); I21.A1 Myocardial infarction type 2; E83.51 Hypocalcemia; I47.10 Supraventricular tachycardia, unspecified; E88.09 Other disorders of plasma-protein metabolism, not elsewhere classified; Z87.820 Personal history of traumatic brain injury; H53.9 Unspecified visual disturbance; G62.9 Polyneuropathy, unspecified; I73.00 Raynaud's syndrome without gangrene; Z87.891 Personal history of nicotine dependence; Z79.82 Long term (current) use of aspirin; H81.10 Benign paroxysmal vertigo, unspecified ear
CPT/HCPCS: 36415; 70551; 71045; 78452; 80048; 80053; 80061; 80076; 81003; 82570; 83036; 83735; 83880; 83930; 83935; 84300; 84443; 84484; 85025; 85610; 85730; 93005; 93017; 93306; 93880; 97110; 97116; 97162; 99285; A9500; G0378; J1644; J2785